=== PATIENT | female | born 1980 | race Caucasian/White ===

== ENCOUNTER 2016-06-21 15:39 | Emergency (ER) | payer SELFPAY ==
--- NOTE | 2016-06-22 00:04 | ER ---
ADMIT: 06/21/2016 RM/LOC: ER [facility] MR#: [id number] [address] [address] AMARI VILLALTA [address] [place] [address] Emergency Room Report SEX: F AGE: 35 : 1980 DATE: 06/21/2016 HISTORY OF PRESENT ILLNESS: The patient is a 35-year-old female with a recently diagnosed anxiety, panic attack since October 2015, came to the ER with chief complaint of feeling anxious and feeling panic attack, which did not resolve taking one hydroxyzine this morning. The patient states she recently started hydroxyzine this morning and she is waiting for the appointment which is given for her for 3 months. The patient also complains of agoraphobia, the patient denies any suicidal or homicidal ideation and denies any drug intake. The patient states when she gets anxious, she has tremor of the hands and also some chest pain which comes and goes. At the moment, the patient has no chest pain. The patient denies any head trauma. The patient states the last alcohol intake was 3 weeks ago. The patient denies any drug use too. PHYSICAL EXAMINATION: VITAL SIGNS: The patient was mildly tachycardic with a heart rate of 108. The patient was afebrile. The rest of the vital signs are normal. HEAD AND NECK: Pupils are 3 mm to 4 mm reactive to light bilaterally. There is no lid lag. NECK: There is no bruit. LUNGS: Clear bilaterally. HEART: Normal heart sounds without any murmurs or extra sounds. ABDOMEN: Soft. EXTREMITIES: There is some fine tremor in bilateral upper extremities, which is the intention tremor. I did not notice any resting tremor. NEUROLOGIC: The patient is alert, oriented to person, place, and time, is mildly agitated. EMERGENCY DEPARTMENT COURSE: The patient received 1 mg of Ativan. TSH and free T4 were normal. Metanephrine and VMA were sent out ruling out pheochromocytoma, which results are pending upon receipt of the lab work. The rest of the lab work is noncontributory. The patient states she felt better after taking the Ativan p.o. The patient was discharged to home to be followed up by the primary doctor as needed. Evelio Butts MD/ osvaldo JOB #: [id number] CC: Michael Guidry MD, Attending Physician Jose Tavares MD, Family Physician
== END 2016-06-21 17:29 | disposition home or self-care (01) ==
LOC: ER 15:39
DX: F41.0 Panic disorder [episodic paroxysmal anxiety] (principal)

== ENCOUNTER 2016-07-04 23:47 | Inpatient (IN) | payer SELFPAY ==
[~2016-07-04] VITALS: Ht 170.2 cm; Wt 58.0 kg
--- NOTE | 2016-07-05 07:08 | ER ---
ADMIT: 07/05/2016 RM/LOC: 302 [facility] MR#: [id number] [address] [place], [place] [address] AMARI VILLALTA [address] [place] [address] Emergency Room Report SEX: F AGE: 35 : 1980 DATE: 07/04/2016 CHIEF COMPLAINT: Overdose. HISTORY OF PRESENT ILLNESS: The patient is a 35-year-old female, transported by [facility] after family called for possible overdose at 11:00 p.m. The patient was vomiting when EMS was dispatched, became unresponsive and was unresponsive when paramedics arrived. They treated with 0.8 mg of Narcan with no change in mental status. The patient was maintaining her own airway though hypotensive, minimally responsive to noxious stimuli. The patient was last hospitalized at [facility], May 30, for depression, alcohol abuse, and suicidal ideation. Family had attempted to rid the house of all angiolytics and dangerous medication. However, she had been hiding alcohol in various places including the toilet tank and continues to drink. ALLERGIES: PENICILLIN. MEDICATIONS: Please see nurse's MAR. PAST MEDICAL HISTORY: Illnesses: Depression, anxiety, alcoholism. Operations: Recent bilateral breast augmentation. REVIEW OF SYSTEMS: Unavailable due to altered level of consciousness. SOCIAL HISTORY: . Children in the home. Alcoholic. Nonsmoker. No illicit drugs. FAMILY HISTORY: Negative per chart review. PHYSICAL EXAMINATION: VITAL SIGNS: Temp 96.3, pulse 54, respirations 10, BP 64/39, SaO2 100% room air. GENERAL: Obtunded. Minimal gag reflex. No evidence of head trauma. HEENT: No evidence of epistaxis, rhinorrhea, or otorrhea. NECK: Supple without meningismus. CHEST: Clear. Breath sounds equal. HEART: Regular rate and rhythm without murmur, gallop, or edema. ABDOMEN: Soft, scaphoid, nontender, nondistended without mass or megaly. Bowel sounds hypoactive. EXTREMITIES: No evidence of Homans sign, synovitis, or dermatitis. NEURO: EOMI. PERRLA. Minimal withdrawal to painful stimuli. MEDICAL DECISION MAKING: The patient is comatose. Multiple drug overdose and alcohol. Intubation with no sedatives or paralytics were necessary, tolerated 7.0 Shiley first pass with GlideScope. End-tidal capnography confirms. Chest x-ray shows ET above jeancarlos. Lavage tube passed. Minimal pill fragments. After 3 L normal saline irrigation, 50 g of charcoal instilled. OG pulled. York catheter with approximately 100 mL of urine obtained. Urine tox screen negative. Hemoglobin 10.3, platelets 151, potassium 3.3, glucose 126, ADMIT: 07/05/2016 RM/LOC: 302 [facility] MR#: [id number] [address] [address] [place] [address] Emergency Room Report SEX: F AGE: 35 : 1980 corrected calcium 7.6, ionized calcium pending, magnesium 1.7. ABGs 0.6, pH 7.4, pCO2 of 31, PO2 of 232. CRP less than 0.29. Salicylate less than 1.7. TSH 9.26. HCG negative. INR 1.09. ETOH 192. Acetaminophen 3.4. Free T4 0.98. Troponin less than 0.015. Lactic 1.6. EKG shows sinus rhythm with normal intervals including QRS 104 milliseconds, QTc 480 milliseconds, rate of 82, sinus rhythm. The patient was given 2 g magnesium, 1 amp of calcium gluconate, 20 mEq of potassium chloride, and 500 normal saline over 2 hours. The patient was given 30 mL/kg bolus normal saline with minimal change in blood pressure. Levophed was started with blood pressure response greater than [address] head negative. Discussed findings and disposition with Dr. Jewell, who agreed and gave orders to nursing staff. Due to the patient's presentation, findings, and intervention, 90 minutes of critical care is warranted. PROCEDURE: Intubation 7.0 Shiley using GlideScope first passed without difficulty. Chest x-ray confirms placement. DIAGNOSES: 1. Suicidal depression. 2. Multiple drug overdose. 3. Acute alcohol intoxication and chronic alcoholic. 4. Cardiogenic shock secondary to above. 5. Hypomagnesemia, hypokalemia, and hypocalcemia all due to multiple drug overdose compounding cardiogenic shock. RECOMMENDATION: Admit inpatient ICU for Dr. Jewell. ADMISSION CONDITION: Stable. CODE STATUS: The patient is a full code. Angel Luis Valencia MD/ modl JOB #: [id number] CC: Stella Jewell MD, Attending Physician Stella Jewell MD, Family Physician MD Dustin Garcia MD
--- NOTE | 2016-07-06 07:57 | HP ---
ADMIT: 07/05/2016 RM/LOC: 302 [facility] MR#: [id number] [address] [address] IRINA VILLALTA [address] [place] [address] History and Physical SEX: F AGE: 35 : 1980 DATE OF SERVICE: HISTORY OF PRESENT ILLNESS: Irina is a 35-year-old, white female, who is a city-call patient, self-pay, who has recently been hospitalized at [facility] with an apparent suicide attempt, severe anxiety, depression, alcohol abuse, who presents to the emergency room after she was found unresponsive. EMS was called and she was brought to the emergency room for further care. She had her medications empty bottles, unsure as to whether she had taken them or not as well as positive alcohol in her blood at the time of her admission. Her urine drug screen was negative. She was brought to the emergency room very unresponsive, mildly hypotensive, and was started on and was intubated. In the ER, her pH was 7.37, pCO2 of 37, PO2 of 145. Sodium 144, potassium 3.3, BUN and creatinine of 7 and 0.7, calcium 6.2. Albumin 2.2. Phosphorus 2.3, magnesium 1.7. Acetaminophen level 3.4, alcohol 193. TSH 9.02. White count 6.5, hemoglobin 10.3, platelet count 151,000. Drug screen was negative. No serum tricyclics were ordered. Lactic acid 1.6. UA was negative. CT of brain was negative. She at this time is admitted to Intensive Care Unit with drug overdose, suicide attempt, history of anxiety, depression, history of alcohol use. SOCIAL HISTORY: She is unable to give and no family members or friends are here. History of alcohol use. FAMILY HISTORY: Noncontributory. REVIEW OF SYSTEMS: Unable to obtain. PHYSICAL EXAMINATION: GENERAL: She is intubated, mildly sedate. She is intubated. She will respond to verbal commands. HEENT: Her pupils are reactive to light. HEART: Regular rhythm. LUNGS: No evidence of QRS widening. HEART: Regular rhythm. LUNGS: Clear, but diminished to auscultation. ABDOMEN: Soft, nontender, and nondistended. EXTREMITIES: No evidence of peripheral edema noted. ADMIT: 07/05/2016 RM/LOC: 302 [facility] MR#: [id number] [address] [address] KUSHIRINA PICKENS [address] [place] [address] History and Physical SEX: F AGE: 35 : 1980 ASSESSMENT: Admission of a 35-year-old, white female with anxiety, depression, history of alcohol abuse, prior suicide attempts with evidence of suicide attempt, possibly took all of her normal pills. She, at this time is, receiving IV fluids. In addition, we will initiate alcohol withdrawal precautions. I feel that her risk of withdrawal is low because of her recent hospitalization at [facility]. In addition, we are able to obtain a salsalate level but it is a send out. We, at this time, will admit to [facility] Intensive Care, ventilator support, and blood pressure management. We will ask Critical Care consult to follow for ventilator support and Psych consult. In addition, we will add bicarbonate to her IV fluids for alkalinization of her fluid. Her EKG shows no evidence of widening of her QRS complex at this time. Stella Jewell MD/ osvaldo JOB #: [id number] CC: Stella Jewell, Attending Physician Stella Jewell, Family Physician
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
--- NOTE | 2016-07-08 08:14 | CO ---
ADMIT: 07/05/2016 RM/LOC: 302 [facility] MR#: [id number] [address] [address] AMARI JONES [address] [place] [address] Consultation SEX: F AGE: 35 : 1980 DATE OF CONSULTATION: 07/05/2016 ATTENDING PHYSICIAN: Stella Jewell CONSULTING PHYSICIAN: Chirag Dunbar MD[facility] COMPLAINT: Respiratory failure secondary to altered mental status. HISTORY OF PRESENT ILLNESS: Ms. Jones is a 35-year-old female, who came to the emergency room unresponsive last night. She has a history of suicide attempts and psych diagnoses. She was intubated, and no history is obtainable from the patient. Her urine tox screen was positive for metanephrines. Her Tylenol level at approximately midnight was 3.4, this has been ordered repeat stat. She does have a drinking history. She is receiving Ativan p.r.n. for sedation at the current time. She is currently unresponsive and unable to give any history. Numerous pill bottles were found with her, unclear what she would have taken. Her drug screen was only positive for metanephrines. She is on antidepressants. QRS and QTc were normal this a.m. Her test was negative. Her ethanol level was 192. No further history is obtained on her at the current time. MEDICATIONS: 1. Pepcid. 2. Thiamine. 3. Folate. 4. Mag sulfate. 5. Ativan. PHYSICAL EXAMINATION: VITAL SIGNS: Temperature 95.6, pulse 94, respirations 18, blood pressure 139/77. She is on a ventilator. HEENT: Pupils are equal and reactive, they are constricted. Sclerae nonicteric. NECK: Supple. Trachea is midline. LUNGS: Clear to auscultation. CV: Regular rate without murmurs, rubs, or gallops. ABDOMEN: Active bowel sounds. Soft, nontender. EXTREMITIES: No cyanosis, clubbing, or edema. SKIN: Without acute lesions. NEURO: Unresponsive. DTRs 1/4 throughout. LABORATORY AND X-RAY DATA: Sodium 144, potassium 3.3, chloride 111, CO2 of 23. Anion gap was 10. Glucose 126. Phosphorus 2.3. Albumin 2.5. Magnesium slightly low at 1.7. Acetaminophen level was 3.4. Alcohol 192. Metanephrines as mentioned. White count 6.5, hemoglobin 10.3, platelets are 151. Chest x-ray shows no active pulmonary airway disease. Initial ECG on 07/04/2016 at 1155 hours showed a QRS of 104, QTc of 480. ADMIT: 07/05/2016 RM/LOC: [address] [place] [address] MR#: [id number] [address] [place] [address] [facility] [place] [address] Consultation SEX: F AGE: 35 : 1980 IMPRESSION: 1. Hypotension. 2. Respiratory failure. 3. Possible drug overdose with antidepressants. RECOMMENDATIONS: Her Tylenol level was low, but measurable; we will repeat to make sure it is not climbing. LFTs were normal. We will monitor in the ICU. Her blood pressure is slightly low, we will give fluid bolus replacing potassium and magnesium at the current time. Thank you for the consultation. Chirag Dunbar MD, FCCP/ modl JOB #: [id number] CC: Stella Jewell, Attending Physician Stella Jewell, Family Physician
--- NOTE | 2016-07-12 07:35 | DS ---
ADMIT: 07/05/2016 RM/LOC: 302 [facility] MR#: [id number] [address] [address] AMARI VILLALTA [address] [place] [address] General Discharge Summary SEX: F AGE: 35 : 1980 ADMISSION DATE: 07/05/2016 DISCHARGE DATE: 07/06/2016 DISCHARGE DIAGNOSES: 1. Depression. 2. Alcohol. 3. Panic disorder. 4. Post-traumatic disorder with suicide attempt of her home meds, which included tricyclic antidepressant. 5. Positive alcohol. HISTORY OF PRESENT ILLNESS: Well-documented in her chart. LABORATORY AND X-RAY DATA: Her laboratory and radiographic assessment is noted. A CT of her brain showed no acute abnormalities. Multiple EKGs, which were performed as she had questionably taken tricyclic showed sinus rhythm was no widening of the QRS complex. HOSPITAL COURSE: This 35-year-old, white female was admitted to [facility] after a questionable suicide attempt. She has history of severe anxiety, depression, alcohol abuse. She was found unresponsive, EMS was called, she was brought to the emergency room for further evaluation and care. She initially had acetaminophen level which was normal, alcohol level of 193, TSH of 9.02, her lactic acid was 1.6. CT of brain was negative. She had respiratory compromise and was intubated in the emergency room. She did well. Vital signs were stable. She did not have any evidence of abnormality in her QRS or QTc. She subsequently was extubated after being followed by Pulmonary Care. She was then subsequently seen by Telemedicine for further treatment of her psychiatric illness. She subsequently was discharged and was transported by her family members to [place] for further treatment. She underwent EPC process and was felt that she was not a candidate for EPC, so family did transport her. She is also found to have mild hypothyroidism and will be started on Synthroid. She was discharged in stable condition. Stella Jewell MD/ osvaldo JOB #: [id number] CC: Stella Jewell MD, Attending Physician Stella Jewell MD, Family Physician
--- NOTE | 2016-07-14 08:01 | DS ---
ADMIT: 07/05/2016 RM/LOC: 302 [facility] MR#: [id number] [address] [address] AMARI VILLALTA [address] [place] [address] General Discharge Summary SEX: F AGE: 35 : 1980 ADMISSION DATE: 07/05/2016 DISCHARGE DATE: 07/06/2016 DISCHARGE DIAGNOSES: 1. Suicide attempt. 2. History of severe anxiety and depression. 3. Positive use of high-risk medication as well as alcohol. HISTORY OF PRESENT ILLNESS: Well documented in her H and P. LABORATORY AND X-RAY DATA: Her laboratory and radiographic assessment is as shown. On admission; white count was 6.5, hemoglobin 10.3, platelet count of 150,000. At the time of discharge; hemoglobin 10.8. Urinalysis was cloudy, 1+ leukocytes. Sodium of 144; potassium 3.4; BUN and creatinine 5 and 0.7; blood sugar 112; phosphorus of 1.1 at time of discharge, phosphorus of 2.2. ABGs on admission 7.41, pCO2 of 30, pO2 of 237, this is after being placed on the ventilator. Her free T4 was 0.98, TSH was 9.260, her procalcitonin was less than 0.05. Acetaminophen level was 3.4, low; salsalate level was 1.7, low; her alcohol level was 192. Her drug screen was negative, but tricyclics were positive, felt to be in the therapeutic range. Blood culture showed no growth. Urine culture showed Enterococcus faecalis and Pseudomonas aeruginosa. CT of brain showed negative CT. Chest x-ray showed no acute cardiopulmonary process. EKG showed normal sinus rhythm. HOSPITAL COURSE: She was admitted to [facility] with decreased level of consciousness. She was found inebriated as well as with empty pill bottles. She was admitted to [facility]. She had evidence of respiratory compromise, was intubated in the emergency room, was hypotensive, was started on Levophed, was placed on Pepcid, all of her home meds were held. She had serial EKGs performed as well as psych consult. She had serum tricyclic level obtained as well as given IV bicarbonate. She had continued improvement and became more arousable and more alert. Was seen and evaluated by Pulmonary Medicine and was subsequently extubated. She was discharged after being seen by Psych and with family transport with boyfriend to [facility]. She was placed on Cipro 500 mg one tablet p.o. b.i.d. for urinary tract infection. Diet as tolerated. Up as tolerated. Xanax 0.25 mg p.o. t.i.d. p.r.n. anxiety was initiated and she subsequently was discharged on 07/06/2016, and she was discharged with her boyfriend. We will be taking her to [facility]. Stella Jewell MD/ osvaldo JOB #: [id number] CC: Stella Jewell MD, Attending Physician Stella Jewell MD, Family Physician
== END 2016-07-06 14:00 | DRG 917 ==
LOC: ER 23:47 → 3ICU 07-05 01:30
PROVIDERS: ADMIT Internal Medicine
PROC: HZ2ZZZZ Detoxification Services for Substance Abuse Treatment (ICD-10-PCS; principal; 2016-07-05)
PROC: 0BH17EZ Insertion of Endotracheal Airway into Trachea, Via Natural or Artificial Opening (ICD-10-PCS; principal; 2016-07-05)
PROC: 5A1935Z Respiratory Ventilation, Less than 24 Consecutive Hours (ICD-10-PCS; principal; 2016-07-05)
DX: T43.592A Poisoning by other antipsychotics and neuroleptics, intentional self-harm, initial encounter (principal); J96.90 Respiratory failure, unspecified, unspecified whether with hypoxia or hypercapnia; R40.20 Unspecified coma; I95.9 Hypotension, unspecified; E83.42 Hypomagnesemia; E83.51 Hypocalcemia; E87.6 Hypokalemia; N39.0 Urinary tract infection, site not specified; T46.5X2A Poisoning by other antihypertensive drugs, intentional self-harm, initial encounter; T51.0X2A Toxic effect of ethanol, intentional self-harm, initial encounter; B96.5 Pseudomonas (aeruginosa) (mallei) (pseudomallei) as the cause of diseases classified elsewhere; B95.2 Enterococcus as the cause of diseases classified elsewhere; F32.9 Major depressive disorder, single episode, unspecified; F10.229 Alcohol dependence with intoxication, unspecified; F41.0 Panic disorder [episodic paroxysmal anxiety]; F43.10 Post-traumatic stress disorder, unspecified; Y90.6 Blood alcohol level of 120-199 mg/100 ml

== ENCOUNTER 2016-07-26 09:56 | Emergency (ER) | payer SELFPAY ==
--- NOTE | 2016-08-03 10:17 | ER ---
ADMIT: 07/26/2016 RM/LOC: ER [facility] MR#: [id number] [address] [address] AMARI VILLALTA [address] [place] [address] Emergency Room Report SEX: F AGE: 35 : 1980 DATE: 07/26/2016 ADDENDUM: CHIEF COMPLAINT: Needs help. HISTORY OF PRESENT ILLNESS: This is a 35-year-old who took 15 gabapentin and 15 Klonopin last night along with alcohol. She said her intense was not to harm herself, just to help her sleep. She said she really just needs help with her alcohol abuse. CLINICAL IMPRESSION: 1. Alcohol abuse. 2. Medication overdose, intentional with intentions just to sleep, not to harm herself. We did get a hold of [facility] in [place], they will accept her once labs are completed. DISPOSITION: She is stable at discharge. BRUCE Field / Leeroy Terry MD / osvaldo JOB #: [id number] CC: Leeroy Terry MD, Attending Physician UNKNOWN, Family Physician
== END 2016-07-26 12:20 ==
LOC: ER 09:56
DX: T42.6X2A Poisoning by other antiepileptic and sedative-hypnotic drugs, intentional self-harm, initial encounter (principal); T42.4X2A Poisoning by benzodiazepines, intentional self-harm, initial encounter; F10.20 Alcohol dependence, uncomplicated; F17.210 Nicotine dependence, cigarettes, uncomplicated; F32.9 Major depressive disorder, single episode, unspecified

== ENCOUNTER 2016-08-23 23:11 | Emergency (ER) | payer SELFPAY ==
--- NOTE | 2016-09-26 15:38 | ER ---
ADMIT: 08/23/2016 RM/LOC: ER [facility] MR#: [id number] [address] [address] AMARI VILLALTA [address] [place] [address] Emergency Room Report SEX: F AGE: 35 : 1980 DATE: 08/23/2016 A 35-year-old female, who has been drinking the night she came to the Emergency Department with hopes to stop drinking. She has been 30 days sober, would not elaborate as to why she started drinking again tonight. She was alert and appropriate. CBC is within normal limits. Her CMP is significant only for a sodium of 146, and a potassium of 3.4. Urine triage was negative. The patient is diagnosed with alcohol abuse. She did agree to go to [facility]. We transfer her after seeing at [facility]. DIAGNOSIS: Alcohol abuse. Jhonathan Wagner MD/ osvaldo JOB #: [id number] CC: Angel Luis Valencia MD, Attending Physician Kit Stewart MD, Family Physician
== END 2016-08-24 01:11 | disposition home or self-care (01) ==
LOC: ER 23:11
DX: F10.10 Alcohol abuse, uncomplicated (principal); F32.9 Major depressive disorder, single episode, unspecified; F17.200 Nicotine dependence, unspecified, uncomplicated; Z88.0 Allergy status to penicillin

== ENCOUNTER 2016-08-24 10:01 | Emergency (ER) | payer SELFPAY ==
--- NOTE | 2016-08-25 12:17 | NUR ---
Received SAD person referrals on pt on 08/23/16 and 08/24/16. Attempted to contact pt. No answer, unable to leave a voice mail as her voice mail has not been set-up.
--- NOTE | 2016-08-26 11:25 | NUR ---
Attempted to contact pt. No answer, unable to leave a voice mail message as voice mail message has not been set up.
--- NOTE | 2016-08-27 09:05 | ER ---
ADMIT: 08/24/2016 RM/LOC: ER [facility] MR#: [id number] [address] [address] AMARI VILLALTA [address] [place] [address] Emergency Room Report SEX: F AGE: 35 : 1980 DATE: 08/24/2016 CHIEF COMPLAINT: Alcohol intoxication. HISTORY OF PRESENT ILLNESS: This is a 35-year-old white female, who is brought to us by [facility] after she was brought to [facility] by family practice. She was acutely intoxicated. She was seen in the [facility] last night, evaluated by Dr. Wagner. They did run basic laboratory studies on her. Gave her fluids, Zofran, and discharged her to [facility] for followup. She states, she did not go to [facility] last night, she drank throughout the night and her last drink was at 0730 hours this morning. She states, she does not know what to do, that she does not know how to get off her Ambien. She states, she is drinking daily. At this point, complains of depression and frustration with her inability to get things straight. Admits to some nausea, vomiting, and generalized abdominal pain. Denies any bloody emesis. No hallucination, suicidal thoughts or specific plan. Denies any fever, headache, problems with vision, chest pain, shortness of breath, cough, or abdominal pain. PAST MEDICAL HISTORY: Depression and alcohol abuse. COURSE IN THE EMERGENCY ROOM: PHYSICAL EXAMINATION: GENERAL: She is seen and examined. She is afebrile and nontoxic. She has clear speech. She is oriented to person, place, and time. She is in no acute distress. She is oriented x4. She does have a depressed mood. She is tearful when I speak with her. She is able to ambulate on her own power. EYES: Equal and reactive. Extraocular muscles are intact. NECK: No cervical spine pain to palpation. LUNGS: No respiratory distress. HEART: Regular. SKIN: Warm and dry. ABDOMEN: She does have some generalized abdominal tenderness. No rebounding or guarding. EXTREMITIES: Nontender. No pedal edema. ADMIT: 08/24/2016 RM/LOC: ER [facility] MR#: [id number] [address] [address] AMARI VILLALTA [address] [place] [address] Emergency Room Report SEX: F AGE: 35 : 1980 The patient left the room with my examination. I told her that there was nothing we could do for her in the department tonight as she does not wish to be evaluated for detox at this point. She states, she needs to get to work later this afternoon. I asked her what she thinks will happen if she shows up in this state, she does not answer. She left the department tonight refusing to sign any paperwork, multiple attempts were made. She was discharged home. IMPRESSION: Acute alcohol intoxication. DISPOSITION: The patient was discharged from the department. She was encouraged to stop drinking as this is obviously causing a lot of problems in her life. She was discharged in stable condition. BRUCE Kraus / Leeroy Terry MD / osvaldo JOB #: [id number] CC: Leeroy Terry MD, Attending Physician
== END 2016-08-24 10:30 | disposition home or self-care (01) ==
LOC: ER 10:01
DX: F10.120 Alcohol abuse with intoxication, uncomplicated (principal); F32.9 Major depressive disorder, single episode, unspecified; F17.200 Nicotine dependence, unspecified, uncomplicated; Z88.0 Allergy status to penicillin; Z98.82 Breast implant status